=== PATIENT | female | born 1990 | race Caucasian/White ===

== ENCOUNTER 2020-12-27 04:57 | Inpatient (IN) | payer OTHER ==
[~2020-12-27 04:57] MED LIST: Sodium Chloride 0.9% 10 ML Syringe FLUSH PRN
[2020-12-27] MEDS ORDERED: Citric Acid/Sodium Citrate Solution 30 ML Cup PO ONE (05:00)
[2020-12-27] MEDS ORDERED: Lactated Ringers 1,000 ML IV SCH (05:00)
[2020-12-27] MEDS ORDERED: Metoclopramide 10 MG/2 ML SDV IVPUSH ONE (05:00)
--- NOTE | 2020-12-27 05:26 | PCM.LDHP ---
L&D History of Present Illness - General Date of Service: 12/27/20 Admit Problem/Dx: Patient Status Order with Admit Dx/Problem 12/27/20 05:00 Patient Status [ADT] Routine Admission Diagnosis/Problem Admission Diagnosis/Problem 12/27/20 05:17 Angelic is a 30-year-old 2 para 1-0-0-1 white female who was admitted on the a.m. of 12/27/2020 at 39-0/7 weeks gestational age with an NATHANIEL of 01/03/2021 for elective repeat section. Source of Information: Patient History Limitations: Reports: No Limitations - History of Present Illness Introduction:: Angelic is a 30-year-old 2 para 1-0-0-1 white female who was admitted on the a.m. of 12/27/2020 at 39-0/7 weeks gestational age with an NATHANIEL of 01/03/2021 for elective repeat section. Her NATHANIEL is determined by LMP of 03/29/2020 and supported by at least 4 ultrasounds during the course of done on 05/09/2020, 06/06/2020, 08/16/2020 and 09/10/2020. Previous section was done for failure to progress after a 24-hour labor which resulted in 8 pound 1 ounce male . The procedure of elective repeat section, its risks, benefits, follow-up and alternatives are discussed in detail with the patient and her . They appear to understand, wish to proceed and have signed a consent. SURGICAL ONCOLOGIST history: Patient is a 2 para 1-0-0-1. Her LMP was 03/29/2020Patient had menarche at age 14. Cycles are monthly. She is not using any control at the time of conception. She denies any STIs or abnormal Pa p smears. Previous resulted in for failure to progress8 pound 1 ounce named Paulo Patino. done after 24 hours of labor. course: Patient was initially seen on 06/06/2020 at 9 and 6 of weeks gestational age. She is seen on a regular basis throughout the . Risk factors for the include: History of previous section for fa ilure to progress, history of depression in high school, history of hypertension in previous . Fundal height growth was appropriate. Patient is group B strep negative. She has a history of an echogenic focus and heart on ultrasound during . She had early vaginal bleeding and had RhoGam given early on 09/10/2020 for this. She had RhoGam again on 12/12/2019. Her [place] depression screen score on 08/29/2020 was 3/30. She plans to breast-feed. She is Rh-. She received her flu shot on 07/19/2020. Tdap was given on 10/31/2020. She is rubella immune. Allergies: None Medications: 1. Ferrous sulfate 3 and 25 mg p.o. daily 2. Baby aspirin 81 mg daily 3. vitamins daily Past medical history: 1. Right arm fracture's as a sixth-grader 2. History of depression in high school 3. Hypertension with her last . Past surgical history: 1. Right arm pinningsixth grade 2. Tonsillectomy and adenoidectomy 3. 2014 Family history: Mother is alive and well. Father is at age 55 from an accidental overdose. She is a single child. Maternal grandmother is alive and well. Maternal grandfather secondary to emphysemawas a smoker. Paternal grandmother is alive and well. Paternal grandfather is alive and well. There is no family history of bleeding disorders, blood clotting disorders, problems, anesthesia problems or asthma. Social history: Patient is . is Bg. They live in [place]. She does not use any significant also alcohol, drugs or tobacco. Review of systems: In general patient has no complaints. Baby has been active and she has not had any significant contractions. Skin: Negative Lungs: No infectious symptoms or shortness of breath Cardiovascular: No chest pain or exercise intolerance Breasts: No lumps, changes in size, pain, dimpling, discharge or axillary or supraclavicular concerns. Is associated with . GI: Negative : Body habitus changes associated with Musculoskeletal: Negative Neurological: Negative Physical exam: In general the patient is well-developed, well-nourished, pleasant female of stated age in no acute distress. On last evaluation clinic blood pressure is 122/78. Weight was 217 pounds with pregravid weight of 183. Height is 5 feet 4. Prepregnancy body mass index was 31.4. Skin is warm dry without lesions. HEENT, neck and back within normal limits. Lungs are clear with good breath sounds in all lung brunson. Cardiovascular exam shows regular and rhythm without murmurs. Breast exam done early in the was within normal limits and is not repeated at this time. Abdomen is gravid with last fundal height of 39 cm. Baby in vertex presentation by Azael maneuvers. Genital exam not performed Extremities and neurological exam are grossly within normal limits. - Related Data Allergies/Adverse Reactions: Allergies Allergy/AdvReac Type Severity Reaction Status Date / Time No Known Allergies Allergy Verified 05/28/15 16:24 Home Medications: Home Meds Vit No.130/Iron/Folic [ Tablet] 1 tab PO DAILY 05/28/15 [History] Acetaminophen/oxyCODONE [Percocet 325-5 MG] 2 tab PO Q4H PRN #30 tablet 06/11/15 [Rx] Diltiazem [Cardizem CD] 180 mg PO DAILY #30 cap.cd 06/11/15 [Rx] Docusate Sodium [Colace] 100 mg PO Q12H PRN #30 cap 06/11/15 [Rx] Labetalol [Normodyne] 200 mg PO TID #30 tablet 06/11/15 [Rx] Lanolin [Lansinoh HPA] 1 applic TOP ASDIRECTED PRN #30 crm 06/11/15 [Rx] Past Medical History SURGICAL ONCOLOGIST History: Reports: Psychiatric History: Reports: Anxiety Endocrine/Metabolic History: Reports: None - Past Surgical History HEENT Surgical History: Reports: Adenoidectomy, Tonsillectomy Other Cardiovascular Surgeries/Procedures: HTN last month of Female Surgical History: Reports: Section Other Musculoskeletal Surgeries/Procedures:: Right arm fracture with pins placed to set it. Social & Family History - Family History Family Medical History: No Pertinent Family History H&P Review of Systems - Review of Systems: Review Of Systems: See Below L&D Exam - Exam Exam: See Below - Vital Signs Weight: 98.883 kg Problem List Initiated/Reviewed/Updated: Yes Orders Last 24hrs: Active Orders 24 hr Category Date Time Status Patient Status [ADT] Routine ADT 12/27/20 05:00 Active Communication Order [RC] ROUTINE Care 12/27/20 05:00 Active Heart Tones [RC] PER UNIT ROUTINE Care 12/27/20 05:00 Active Non Stress Test [RC] PER UNIT ROUTINE Care 12/27/20 05:00 Active Peripheral IV Care [RC] . DIRECTED Care 12/27/20 01:14 Active Procedure Site Prep Instruct [RC] ASDIRECTED Care 12/27/20 05:00 Active Verify Patient Consent Obtain [RC] PER UNIT ROUTINE Care 12/27/20 05:00 Active Vital Signs [RC] PFP Care 12/27/20 05:00 Active CBC WITH AUTO DIFF [HEME] Timed Lab 12/27/20 05:30 Ordered CORONAVIRUS COVID-19 MAXIM [MOLEC] Stat Lab 12/27/20 05:30 Ordered RAPID PLASMA REAGIN,RPR [CHEM] Timed Lab 12/27/20 05:30 Ordered TYPE AND SCREEN [BBK] Timed Lab 12/27/20 05:30 Ordered Lactated Ringers [Ringers, Lactated] 1,000 ml Med 12/27/20 05:00 Active IV ASDIRECTED Sodium Chloride 0.9% [Saline Flush] Med 12/27/20 01:12 Active 10 ml FLUSH ASDIRECTED PRN ceFAZolin [Ancef 2 GM/50 ML] 2 gm Med 12/27/20 06:30 Active Premix Bag 1 bag IV ONETIME Peripheral IV Insertion Adult [OM.PC] Routine Oth 12/27/20 05:00 Ordered Schedule Procedure [COMM] Per Unit Routine Oth 12/27/20 05:00 Ordered Resuscitation Status Routine Resus Stat 12/27/20 01:12 Ordered Medication Orders Cefazolin Sodium/Dextrose 2 gm (/ Premix) 50 mls @ 100 mls/hr IV ONETIME ONE Stop: 12/27/20 06:59 Lactated Ringer's (Ringers, Lactated) 1,000 mls @ 125 mls/hr IV ASDIRECTED KRUNAL Sodium Chloride (Sodium Chloride 0.9% 10 Ml Syringe) 10 ml FLUSH ASDIRECTED PRN PRN Reason: Keep Vein Open Assessment/Plan Comment:: 1Johnathon Atwood is a 30-year-old 2 para 1-0-0-1 white female who was admitted on the a.m. of 12/27/2020 at 39-0/7 weeks gestational age with an NATHANIEL of 01/03/2021 for elective repeat section. 2. Risk factors for include: History of previous section for failure to progress, history of depression in high school, history of hypertension with last 3. Rubella titer immune, patient has received RhoGam during x2-first time on 09/10/2024 history of bleeding in early . Tdap given on 10/31/2020. Flu shot given 07/19/2020. 4. Patient plans to breast-feed 5. Echogenic focus was seen on ultrasound in the heart during 6. Mild anemia treated with ferrous sulfate. Plan: 1. Repeat lower uterine segment transverse section through Pfannenstiel skin incision under spinal block on 12/27/2020. Procedure, risk, benefits, alternatives of care discussed with patient. Consent signed. 2. DVT prophylaxis with SCDs 3. Infection prophylaxis with Ancef 2 g IV preop 4. Preoperative laboratory testing to consist of COVID-19, CBC, type and screen, RPR. 5. Support breast-feeding decision
[2020-12-27] MEDS ORDERED: ceFAZolin 2 GM in Premix Bag 1 BAG IV ONE (06:30)
--- NOTE | 2020-12-27 07:14 | PCM.PREANE ---
Preanesthetic Assessment - Procedure Proposed Procedure: Repeat - Anesthesia/Transfusion/Family Hx Anesthesia History: Prior Anesthesia Without Reaction Type of Anesthesia Reaction: Excessive Somnolence Family History of Anesthesia Reaction: No Transfusion History: Prior Transfusion Without Reaction Intubation History: Unknown - Review of Systems General: No Symptoms Pulmonary: No Symptoms Cardiovascular: No Symptoms ( Induced hypertension with prior ) Gastrointestinal: No Symptoms (GERD), Nausea Neurological: No Symptoms Other: Reports: None, Depression, Anxiety - Physical Assessment NPO Status Date: 12/26/20 NPO Status Time: 21:00 Vital Signs: Last Vital Signs Temp 36.8 C 12/27/20 05:52 Pulse 92 12/27/20 05:52 Resp 18 12/27/20 05:52 BP 126/90 12/27/20 05:52 Pulse Ox 94 L 12/27/20 05:52 Height: 1.6 m Weight: 98.883 kg ASA Class: 2 Mental Status: Alert & Oriented x3 Airway Class: Mallampati = 2 Dentition: Reports: Normal Dentition, Caries Thyro-Mental Finger Breadths: 3 Mouth Opening Finger Breadths: 3 ROM/Head Extension: Full Lungs: Clear to Auscultation, Normal Respiratory Effort Cardiovascular: Regular Rate, Regular Rhythm, No Murmurs - Lab Values: Laboratory Last Values WBC 8.45 K/mm3 (3.98-10.04) 12/27/20 05:43 RBC 4.11 M/mm3 (3.98-5.22) 12/27/20 05:43 Hgb 12.7 gm/dl (11.2-15.7) 12/27/20 05:43 Hct 38.7 % (34.1-44.9) 12/27/20 05:43 MCV 94.2 fl (79.4-94.8) 12/27/20 05:43 MCH 30.9 pg (25.6-32.2) 12/27/20 05:43 MCHC 32.8 g/dl (32.2-35.5) 12/27/20 05:43 RDW Std Deviation 44.6 fL (36.4-46.3) 12/27/20 05:43 Plt Count 156 K/mm3 (182-369) L 12/27/20 05:43 MPV 12.0 fl (9.4-12.3) 12/27/20 05:43 Neut % (Auto) 65.8 % (34.0-71.1) 12/27/20 05:43 Lymph % (Auto) 23.3 % (19.3-51.7) 12/27/20 05:43 [place] % (Auto) 8.5 % (4.7-12.5) 12/27/20 05:43 Eos % (Auto) 1.1 (0.7-5.8) 12/27/20 05:43 Baso % (Auto) 0.2 % (0.1-1.2) 12/27/20 05:43 Neut # (Auto) 5.56 K/mm3 (1.56-6.13) 12/27/20 05:43 Lymph # (Auto) 1.97 K/mm3 (1.18-3.74) 12/27/20 05:43 [place] # (Auto) 0.72 K/mm3 (0.24-0.36) H 12/27/20 05:43 Eos # (Auto) 0.09 K/mm3 (0.04-0.36) 12/27/20 05:43 Baso # (Auto) 0.02 K/mm3 (0.01-0.08) 12/27/20 05:43 SARS-CoV-2 RNA (MAXIM) Negative (NEGATIVE) 12/27/20 05:24 Blood Type A NEGATIVE 12/27/20 05:43 Above labs reviewed and noted and within acceptable ranges to proceed with scheduled procedure. - Allergies Allergies/Adverse Reactions: Allergies Allergy/AdvReac Type Severity Reaction Status Date / Time No Known Allergies Allergy Verified 05/28/15 16:24 - Anesthesia Plan Pre-Op Medication Ordered: None - Acknowledgements Anesthesia Type Planned: Spinal Pt an Appropriate Candidate for the Planned Anesthesia: Yes Alternatives and Risks of Anesthesia Discussed w Pt/Guardian: Yes Pt/Guardian Understands and Agrees with Anesthesia Plan: Yes PreAnesthesia Questionnaire MANPOWER DEVELOPMENT SPECIALIST History: Reports: Psychiatric History: Reports: Anxiety Endocrine/Metabolic History: Reports: None - Past Surgical History HEENT Surgical History: Reports: Adenoidectomy, Tonsillectomy Other Cardiovascular Surgeries/Procedures: HTN last month of Female Surgical History: Reports: Section Other Musculoskeletal Surgeries/Procedures:: Right arm fracture with pins placed to set it. - SUBSTANCE USE Tobacco Use Status *Q: Never Tobacco User Second Hand Smoke Exposure: No Recreational Drug Use History: No - HOME MEDS Home Medications: Home Meds Vit No.130/Iron/Folic [ Tablet] 1 tab PO DAILY 05/28/15 [History] Aspirin 81 mg PO DAILY 12/27/20 [History] Cholecalciferol (Vitamin D3) [Vitamin D] 5,000 unit PO DAILY 12/27/20 [History] Ferrous Sulfate [Iron] 325 mg PO DAILY 12/27/20 [History] - CURRENT (IN HOUSE) MEDS Current Meds: Current Medications Lactated Ringer's (Ringers, Lactated) 1,000 mls @ 125 mls/hr IV ASDIRECTED KRUNAL Last Admin: 12/27/20 06:00 Dose: 999 mls/hr Documented by: Oxytocin/Lactated Ringer's (Pitocin In Lr 10 Units/1,000 Ml) 10 unit in 1,000 mls @ 100 mls/hr IV ASDIRECTED KRUNAL; Protocol Sodium Chloride (Sodium Chloride 0.9% 10 Ml Syringe) 10 ml FLUSH ASDIRECTED PRN PRN Reason: Keep Vein Open Discontinued Medications Citric Acid/Sodium Citrate (Citric Acid/Sodium Citrate Solution 30 Ml Cup) 30 ml PO ONETIME ONE Stop: 12/27/20 05:01 Last Admin: 12/27/20 06:04 Dose: 30 ml Documented by: Cefazolin Sodium/Dextrose 2 gm (/ Premix) 50 mls @ 100 mls/hr IV ONETIME ONE Stop: 12/27/20 06:59 Metoclopramide HCl (Metoclopramide 10 Mg/2 Ml Sdv) 10 mg IVPUSH ONETIME ONE Stop: 12/27/20 05:01 Last Admin: 12/27/20 06:07 Dose: 10 mg Documented by:
[2020-12-27] MEDS ORDERED: Oxytocin/Lactated Ringers 10 UNIT/1,000 ML BAG IV SCH (07:30)
[2020-12-27] MEDS ORDERED: Lactated Ringers 2,000 ML ONE (07:33)
[2020-12-27] MEDS ORDERED: Ondansetron 4 MG/2 ML SDV ONE (07:33)
[2020-12-27] MEDS ORDERED: Ketorolac 30 MG/ML SDV ONE (07:33)
[2020-12-27] MEDS ORDERED: Morphine PF 10 MG/10 ML SDV ONE (07:33)
[2020-12-27] MEDS ORDERED: Oxytocin 10 Units/1 ML SDV ONE (07:33)
[2020-12-27] MEDS ORDERED: ceFAZolin 1 GM Vial ONE (07:33)
[2020-12-27] MEDS: Bupivacaine 0.5% 30 ML SDV ONE ×2 (07:38→08:11)
[2020-12-27] MEDS ORDERED: Ondansetron 4 MG/2 ML SDV IVPUSH PRN (08:06)
[2020-12-27] MEDS ORDERED: ePHEDrine 50 MG/ML SDV IVPUSH PRN ×2 (08:06→09:54)
[2020-12-27] MEDS ORDERED: diphenhydrAMINE 50 MG/ML SDV IVPUSH PRN ×2 (08:06→09:54)
[2020-12-27] MEDS ORDERED: HYDROmorphone 0.5 MG/0.5 ML Syringe IVPUSH PRN (08:06)
[2020-12-27] MEDS ORDERED: fentaNYL 100 MCG/2 ML SDV IVPUSH PRN (08:06)
[2020-12-27] MEDS ORDERED: diphenhydrAMINE 50 MG/ML SDV ONE (08:10)
[2020-12-27] MEDS ORDERED: Meperidine 50 MG/ML Vial ONE (08:19)
--- NOTE | 2020-12-27 09:01 | PCM.POSTAN ---
POST ANESTHESIA ASSESSMENT - MENTAL STATUS Mental Status: Alert - VITAL SIGNS Vital Signs: Last Vital Signs Temp 98.2 12/27/20 0853 Pulse 69 12/27/20 0853 Resp 20 12/27/20 0853 BP 124/91 12/27/20 0853 Pulse Ox 100% 12/27/20 0853 - RESPIRATORY Respiratory Status: Respiratory Rate WNL, Airway Patent, O2 Saturation Stable - CARDIOVASCULAR CV Status: Pulse Rate WNL, Blood Pressure Stable - GASTROINTESTINAL GI Status: No Symptoms - POST OP HYDRATION Hydration Status: Adequate & Stable
--- NOTE | 2020-12-27 09:02 | PCM.OPNOTE ---
- General Post-Op/Procedure Note Date of Surgery/Procedure: 12/27/20 Operative Procedure(s): Repeat lower uterine segment transverse section through Pfannenstiel skin incision Findings: Baby was found to be in a vertex presentation. Amniotic fluid was clear. Uterus tubes, ovaries consistent with term . The baby was male born at 0815 hrs. on 12/27/2020, had Apgars of 8 and 9 and a weight of 8 pounds 5 ounces (3780 g) Pre Op Diagnosis: 1. 39-0/7-week intrauterine . 2. History of previous section with desire for repeat section. Post-Op Diagnosis: Same Anesthesia Technique: Spinal Other Anesthesia Type: Marcaine 0.5% - 20 cc totallocal Primary Surgeon: Donovan Denny Secondary Surgeon: Blair Cooper Anesthesia Provider: Azeb Watts Etl Consultant: Renetta Figueroa Reason Etl Consultant Was Necessary: Retraction, assistance, patient safety, quality of care. Fluid Replacement, Intraop: 500 Output, Urine Amount: 50 EBL in mLs: 450 Drain/Tube Comments:: Indwelling bladder catheter Complications: None Condition: Good Free Text/Narrative:: Surgery duration: 35 minutes Procedure: The patient is appropriately consented. Patient was transferred to the room and placed in a sitting position. Spinal anesthesia was administered. After confirmation of adequate anesthesia patient was placed in a supine position with a wedge under her right side to facilitate left lateral positioning. The patient was prepped and draped in usual fashion after Don catheter was already placed . The anesthetic was checked and found to be adequate. 20 mL of Marcaine 0.5% was injected locally in the Pfannenstiel incision site. The Pfannenstiel skin incision was then made and carried down through skin, subcutaneous and fascial layers. The fascia was then undermined superiorly and inferiorly to allow for adequate operating room. The recti muscles midline and preperitoneal fat was bluntly dissected. Peritoneal cavity was entered longitudinally. The vesicouterine peritoneum was then incised transversely and bladder flap was developed. Myometrium was incised transversely to the level of the amniotic sac. This incision was extended bilaterally in a blunt fashion. The amniotic sac was then ruptured resulting in clear amniotic fluid. A hand is placed in the low uterine segment and the baby's head was brought forth through the incision. The baby was completely delivered using fundal pressure in a routine fashion. The nose and mouth were bulb suctioned. Baby's cord was clamped x2 cut and baby was handed off to attending emissions testing technician Dr Meyer. Placenta was expressed after cord blood was obtained. Uterus was then exteriorized to allow for easier closure. The cervix was assessed and found to be dilated adequately to allow egress of blood. The uterus was closed in 2 layers. The first layer a running locked suture of 0 Monocryl, the second layer a running locked vertical mattress suture of 0 Monocryl. 2 [id number] suture was placed at mid incision to control 2 bleeders. Hemostasis confirmed at this time. Sponge instrument needle counts are correct. The uterus was returned to the abdominal cavity and lateral gutters were cleared of blood. Once again sponge needle counts are correct. The anterior abdominal wall was closed with a #1 PDS suture from angle to angle. The subcutaneous area was found to be free of any bleeders. interrupted sutures of 3-0 Monocryl were used to reapproximate the subcutaneous layer.Skin was closed with a running subcuticular stitch of 3-0 Monocryl in a vertical mattress suture fashion using a Matthew needle. Prineo mesh/glue was then applied to further approximate the incision. It should be noted that patient received 2 g of Ancef preoperatively for infection prophylaxis and had Pitocin infused after delivery of the placenta to facilitate uterine contraction. She also had sequential compression stockings in place for DVT prophylaxis. Patient was discharged from the operating room in satisfactory condition.
[2020-12-27] MEDS ORDERED: Acetaminophen/oxyCODONE 325-5 MG Tab PO PRN (09:54)
[2020-12-27] MEDS ORDERED: Ondansetron 4 MG/2 ML SDV IV PRN (09:54)
[2020-12-27] MEDS ORDERED: Naloxone 0.4 MG/ML SDV IVPUSH PRN (09:54)
[2020-12-27] MEDS ORDERED: Dextrose 5%-Lactated Ringers 1,000 ML IV SCH (09:54)
[2020-12-27] MEDS ORDERED: Docusate Sodium 100 MG Cap PO PRN (09:54)
[2020-12-27] MEDS: Prenatal Multivitamin with Calcium/Folic Acid/Iron Tab PO SCH (10:46)
[2020-12-27] MEDS: Simethicone 80 MG Tab.Chew PO SCH ×3 (10:46→21:46)
[2020-12-27] MEDS: Ibuprofen 800 MG Tab PO SCH ×2 (14:05→21:47)
[2020-12-28] MEDS: Ibuprofen 800 MG Tab PO SCH ×3 (06:36→22:01)
[2020-12-28] MEDS: Acetaminophen/oxyCODONE 325-5 MG Tab PO PRN ×3 (06:53→21:20)
--- NOTE | 2020-12-28 07:50 | PCM.SN.2 ---
- Free Text/Narrative Note: note: Postoperative day #1 Patient is doing well in the period. Minimal lochia, voiding well, ambulated without problems. Nursing without concerns. Pain control is adequate Patient is afebrile, vital signs are stable. Intake and output is good. Lungs are clear with good breath sounds in all lung brunson. Cardiovascular exam shows regular rate and rhythm. Abdomen is flat, soft, uterus is below the umbilicus and is firm and nontender. Legs are nontender. White blood count is 7.76. Hemoglobin is 11.4 and platelets are 146,000. Assessment: /postoperative day 1-recovery going well. Plan: 1. Routine care. Patient be discharged home within the next 24-48 hours. 2. Increase ambulation, regular diet, DC SCDs, IV and catheter
[2020-12-28] MEDS: Prenatal Multivitamin with Calcium/Folic Acid/Iron Tab PO SCH (08:15)
[2020-12-28] MEDS: Simethicone 80 MG Tab.Chew PO SCH ×4 (08:15→21:21)
--- NOTE | 2020-12-28 12:04 | PCM48HPAN ---
Post Anesthesia Note - EVALUATION WITHIN 48HRS OF ANESTHETIC Vital Signs in Normal Range: Yes Patient Participated in Evaluation: Yes Respiratory Function Stable: Yes Airway Patent: Yes Cardiovascular Function Stable: Yes Hydration Status Stable: Yes Pain Control Satisfactory: Yes Nausea and Vomiting Control Satisfactory: Yes Mental Status Recovered: Yes Vital Signs: Last Vital Signs Temp 97.5 F 12/28/20 08:16 Pulse 88 12/28/20 08:16 Resp 16 12/28/20 08:16 BP 138/94 H 12/28/20 08:16 Pulse Ox 95 12/28/20 08:16 - COMMENTS/OBSERVATIONS Free Text/Narrative:: Patient on her postoperative day 1. Patient has stated understanding about possible backaches following epidural / spinal anesthesia. Patient denies any headache, lightheadedness or backache at this time. Ambulating, no difficulty urinating.
[2020-12-29] MEDS: Ibuprofen 800 MG Tab PO SCH (06:25)
--- NOTE | 2020-12-29 06:49 | PCM.DCSUM1 ---
Discharge Summary - Hospital Course Free Text/Narrative:: Angelic is a 30-year-old 2 now para 2-0-0-2 white female who was admitted on 12/27/2020 at 39-0/7 weeks gestational age with an NATHANIEL of 01/03/2021 for elective repeat section. Please see admission history and physical for details. On 12/28/2019 and patient underwent an elective repeat lower uterine segment transverse section through Pfannenstiel skin incision under spinal block. Baby was found to be in a vertex presentation. Amniotic fluid was clear. Uterus, tubes, ovaries consistent with term . The baby was male born at 0815 hrs. on 12/27/2020, had Apgars of 8 and 9 and a weight of 8 pounds 5 ounces (3780 g). Pre Op Diagnosis: 1. 39-0/7-week intrauterine . 2. History of previous section with desire for repeat section. Postoperatively patient has done well. She had pain control with Duramorph and ibuprofen for the first 24 hours followed by ibuprofen and Percocet. She is ambulating well, tolerating fluids well. Her pain is under adequate control. She has minimal lochia and is voiding without concerns. She is desiring discharge home. Follow-up CBC was within normal limits for the postoperative period. She is afebrile and vital signs are stable. Diagnosis: Stroke: No - Discharge Data Discharge Date: 12/29/20 Discharge Disposition: Home, Self-Care 01 Condition: Good - Referral to Home Health Primary Care Physician: Donovan Denny MD - Patient Summary/Data Operative Procedure(s) Performed: Repeat lower uterine segment transverse section through Pfannenstiel skin incision - Patient Instructions Diet: Regular Diet as Tolerated (Nursing diet with increased calories and calcium as recommended) Activity: As Tolerated (No lifting greater than 15 pounds or driving a car x7 days. No intercourse or tampons until seen back.) Driving: Do Not Drive Showering/Bathing: May Shower Wound/Incision Care: Keep Operative Site/Wound Site Clean and Dry Notify Provider of: Fever, Increased Pain, Swelling and Redness, Nausea and/or Vomiting - Discharge Plan Prescriptions/Med Rec: Acetaminophen/oxyCODONE [Percocet 325-5 MG] 2 tab PO Q4H PRN #30 tablet PRN Reason: Pain (Severe 7-10) Home Medications: Home Meds Vit No.130/Iron/Folic [ Tablet] 1 tab PO DAILY 05/28/15 [History] Cholecalciferol (Vitamin D3) [Vitamin D] 5,000 unit PO DAILY 12/27/20 [History] Ferrous Sulfate [Iron] 325 mg PO DAILY 12/27/20 [History] Acetaminophen/oxyCODONE [Percocet 325-5 MG] 2 tab PO Q4H PRN #30 tablet 12/29/20 [Rx] Ibuprofen [Motrin] 800 mg PO Q8H tablet 12/29/20 [Rx] Referrals: Donovan Denny MD [Primary Care Provider] - (Return to [facility] to 2 weeks.) - Discharge Summary/Plan Comment DC Time >30 min.: No Discharge Summary/Plan Comment: Discharge instructions: 1. Discharge home 2. Diet, activity and follow-up discussed with patient. Recommend nursing diet with increased calories and calcium. 3. Precautions given concern increased pain, bleeding, temperature, signs/symptoms of DVT/PE. 4. Medications per home medication was printed, discussed with and given to the patient. 5. Return to clinic-[facility] Denny[facility] in 2 weeks. Diagnosis: 1. Term at 39-0/7 weeks gestational agehistory of previous section with desire for repeat section-delivered by repeat lower uterine segment transverse section through Pfannenstiel skin incision under spinal block on 12/27/2020. 2. History of previous section Condition: Good - Patient Data Vitals - Most Recent: Last Vital Signs Temp 36.6 C 12/29/20 03:42 Pulse 61 12/29/20 03:42 Resp 14 12/29/20 03:42 BP 133/84 12/29/20 03:42 Pulse Ox 97 12/29/20 03:42 Weight - Most Recent: 98.883 kg I&O - Last 24 hours: Intake & Output 12/28/20 12/28/20 12/29/20 14:59 22:59 06:59 Intake Total 180 120 Output Total 700 Balance -520 120 Lab Results - Last 24 hrs: Laboratory Results - last 24 hr 12/28/20 Range/Units 06:22 WBC 7.76 (3.98-10.04) K/mm3 RBC 3.70 L (3.98-5.22) M/mm3 Hgb 11.4 (11.2-15.7) gm/dl Hct 35.1 (34.1-44.9) % MCV 94.9 H (79.4-94.8) fl MCH 30.8 (25.6-32.2) pg MCHC 32.5 (32.2-35.5) g/dl RDW Std Deviation 45.1 (36.4-46.3) fL Plt Count 146 L (182-369) K/mm3 MPV 12.1 (9.4-12.3) fl Neut % (Auto) 70.5 (34.0-71.1) % Lymph % (Auto) 17.7 L (19.3-51.7) % Wolfe % (Auto) 7.9 (4.7-12.5) % Eos % (Auto) 2.8 (0.7-5.8) Baso % (Auto) 0.3 (0.1-1.2) % Neut # (Auto) 5.48 (1.56-6.13) K/mm3 Lymph # (Auto) 1.37 (1.18-3.74) K/mm3 Wolfe # (Auto) 0.61 H (0.24-0.36) K/mm3 Eos # (Auto) 0.22 (0.04-0.36) K/mm3 Baso # (Auto) 0.02 (0.01-0.08) K/mm3 Med Orders - Current: Current Medications Diphenhydramine HCl (Diphenhydramine 50 Mg/Ml Sdv) 25 mg IVPUSH Q6H PRN PRN Reason: Itching or Nausea Docusate Sodium (Docusate Sodium 100 Mg Cap) 100 mg PO Q12H PRN PRN Reason: Constipation Ephedrine Sulfate (Ephedrine 50 Mg/Ml Sdv) 5 mg IVPUSH SEECOMMENT PRN PRN Reason: Other Ibuprofen (Ibuprofen 800 Mg Tab) 800 mg PO Q8H KRUNAL Last Admin: 12/29/20 06:25 Dose: 800 mg Documented by: Naloxone HCl (Naloxone 0.4 Mg/Ml Sdv) 0.1 mg IVPUSH SEECOMMENT PRN PRN Reason: Respiratory Depression Ondansetron HCl (Ondansetron 4 Mg/2 Ml Sdv) 4 mg IV Q4H PRN PRN Reason: Nausea/Vomiting Oxycodone/Acetaminophen (Acetaminophen/Oxycodone 325-5 Mg Tab) 1 tab PO Q4H PRN PRN Reason: Pain (moderate 4-6) Last Admin: 12/28/20 21:20 Dose: 1 tab Documented by: Oxycodone/Acetaminophen (Acetaminophen/Oxycodone 325-5 Mg Tab) 2 tab PO Q4H PRN PRN Reason: Pain (severe 7-10) Prenat Multivit/[place]/Iron/Folic Ac ( Multivitamin With Calcium/Folic Acid/Iron Tab) 1 each PO DAILY [facility] Last Admin: 12/28/20 08:15 Dose: 1 each Documented by: Simethicone (Simethicone 80 Mg Tab.Chew) 160 mg PO QID [facility] Last Admin: 12/28/20 21:21 Dose: 160 mg Documented by: Discontinued Medications Bupivacaine HCl (Bupivacaine 0.5% 30 Ml Sdv) Confirm Administered Dose 30 ml .ROUTE .STK-MED ONE Stop: 12/27/20 07:14 Last Admin: 12/27/20 08:11 Dose: 20 ml Documented by: Cefazolin Sodium (Cefazolin 1 Gm Vial) Confirm Administered Dose 2 gm .ROUTE .STK-MED ONE Stop: 12/27/20 07:34 Citric Acid/Sodium Citrate (Citric Acid/Sodium Citrate Solution 30 Ml Cup) 30 ml PO ONETIME ONE Stop: 12/27/20 05:01 Last Admin: 12/27/20 06:04 Dose: 30 ml Documented by: Diphenhydramine HCl (Diphenhydramine 50 Mg/Ml Sdv) 25 mg IVPUSH Q6H PRN PRN Reason: pruritis Diphenhydramine HCl (Diphenhydramine 50 Mg/Ml Sdv) Confirm Administered Dose 50 mg .ROUTE .STK-MED ONE Stop: 12/27/20 08:11 Ephedrine Sulfate (Ephedrine 50 Mg/Ml Sdv) 5 mg IVPUSH ASDIRECTED PRN PRN Reason: Hypotension Fentanyl (Fentanyl 100 Mcg/2 Ml Sdv) 50 mcg IVPUSH Q20M PRN PRN Reason: Pain Hydromorphone HCl (Hydromorphone 0.5 Mg/0.5 Ml Syringe) 0.5 mg IVPUSH Q10M PRN PRN Reason: Pain (severe 7-10) Cefazolin Sodium/Dextrose 2 gm (/ Premix) 50 mls @ 100 mls/hr IV ONETIME ONE Stop: 12/27/20 06:59 Lactated Ringer's (Ringers, Lactated) 1,000 mls @ 125 mls/hr IV ASDIRECTED [facility] Last Admin: 12/27/20 06:00 Dose: 999 mls/hr Documented by: Oxytocin/Lactated Ringer's (Pitocin In Lr 10 Units/1,000 Ml) 10 unit in 1,000 mls @ 100 mls/hr IV ASDIRECTED [facility]; Protocol Lactated Ringer's (Ringers, Lactated) Confirm Administered Dose 2,000 mls @ as directed .ROUTE .STK-MED ONE Stop: 12/27/20 07:34 Dextrose/Lactated Ringer's (Dextrose 5%-Lactated Ringers) 1,000 mls @ 125 mls/hr IV ASDIRECTED [facility] Stop: 12/27/20 17:53 Last Admin: 12/27/20 14:41 Dose: 125 mls/hr Documented by: Ketorolac Tromethamine (Ketorolac 30 Mg/Ml Sdv) Confirm Administered Dose 30 mg .ROUTE .STK-MED ONE Stop: 12/27/20 07:34 Meperidine HCl (Meperidine 50 Mg/Ml Vial) Confirm Administered Dose 50 mg .ROUTE .STK-MED ONE Stop: 12/27/20 08:20 Metoclopramide HCl (Metoclopramide 10 Mg/2 Ml Sdv) 10 mg IVPUSH ONETIME ONE Stop: 12/27/20 05:01 Last Admin: 12/27/20 06:07 Dose: 10 mg Documented by: Miscellaneous Medication (Phenylephrine Hcl In 0.9% Nacl 1 Mg/10 Ml Syringe) Confirm Administered Dose 1 mg .ROUTE .STK-MED ONE Stop: 12/27/20 07:34 Miscellaneous Medication (Phenylephrine Hcl In 0.9% Nacl 1 Mg/10 Ml Syringe) 0.1 mg IVPUSH Q10M PRN PRN Reason: Hypotension Morphine Sulfate (Morphine Pf 10 Mg/10 Ml Sdv) Confirm Administered Dose 10 mg .ROUTE .STK-MED ONE Stop: 12/27/20 07:34 Ondansetron HCl (Ondansetron 4 Mg/2 Ml Sdv) Confirm Administered Dose 4 mg .ROUTE .[employer]MED ONE Stop: 12/27/20 07:34 Ondansetron HCl (Ondansetron 4 Mg/2 Ml Sdv) 4 mg IVPUSH ONETIME PRN PRN Reason: Nausea/Vomiting Oxytocin (Oxytocin 10 Units/1 Ml Sdv) Confirm Administered Dose 20 unit .ROUTE .[employer] ONE Stop: 12/27/20 07:34 Sodium Chloride (Sodium Chloride 0.9% 10 Ml Syringe) 10 ml FLUSH ASDIRECTED PRN PRN Reason: Keep Vein Open
[2020-12-29] MEDS: Simethicone 80 MG Tab.Chew PO SCH (08:13)
[2020-12-29] MEDS: Prenatal Multivitamin with Calcium/Folic Acid/Iron Tab PO SCH (08:13)
[2020-12-29 10:06] VITALS: BP 126/84; PULSE 67
== END 2020-12-29 09:55 | disposition home or self-care (01) | DRG 788 ==
LOC: UNDOADMIN 04:57 → JD.OB 04:57 → UNDODISIN 12-29 09:55
PROVIDERS: ADMIT Obstetrics & Gynecology; ATTEND Obstetrics & Gynecology
PROC: 10D00Z1 Extraction of Products of Conception, Low, Open Approach (ICD-10-PCS; principal; 2020-12-27)
PROC: 3E0334Z Introduction of Serum, Toxoid and Vaccine into Peripheral Vein, Percutaneous Approach (ICD-10-PCS; 2020-12-27)
DX: O34.211 Maternal care for low transverse scar from previous cesarean delivery (principal); Z37.0 Single live birth; O99.344 Other mental disorders complicating childbirth; F41.9 Anxiety disorder, unspecified; O99.02 Anemia complicating childbirth; D64.9 Anemia, unspecified; Z20.822 Contact with and (suspected) exposure to COVID-19; O26.893 Other specified pregnancy related conditions, third trimester; Z67.11 Type A blood, Rh negative; Z3A.39 39 weeks gestation of pregnancy
CPT/HCPCS: 01961; 36415; 59025; 85025; 85461; 86592; 86850; 86870; 86900; 86901; 94762; A9270-GY; J0690; J1200; J1885; J2175; J2270; J2370; J2405; J2590; J2765; J2790; J3490; J7120; J7121; U0002